=== PATIENT | female | born 1950 | race Caucasian/White ===

== ENCOUNTER 2016-11-06 12:37 | Emergency (ER) | payer MEDICARE, OTHER ==
[2016-11-06 16:02] LABS: HEMOGLOBIN 11.9 gm/dl (12.3-15.3); RED BLOOD COUNT 3.74 M/UL (4.00-5.10); WHITE BLOOD COUNT 8.3 K/UL (4.5-11.0)
[2016-11-06 16:23] LABS: BUN/CREATININE RATIO 9 (0-10)
== END 2016-11-06 18:00 | disposition home or self-care (01) ==
LOC: ER1 12:37
PROVIDERS: Family Medicine
DX: M54.6 Pain in thoracic spine (principal); J44.9 Chronic obstructive pulmonary disease, unspecified; F17.200 Nicotine dependence, unspecified, uncomplicated; Z79.02 Long term (current) use of antithrombotics/antiplatelets; Z79.899 Other long term (current) drug therapy
CPT/HCPCS: 36415; 71020; 80053; 82550; 82553; 83874; 83880; 84484; 85025; 93005; 99284

== ENCOUNTER 2016-12-16 18:54 | Emergency (ER) | payer MEDICARE, OTHER | END 2016-12-16 20:34 | disposition home or self-care (01) | LOC: ER1 18:54 | DX: S63.501A Unspecified sprain of right wrist, initial encounter (principal); J44.9 Chronic obstructive pulmonary disease, unspecified; I10 Essential (primary) hypertension; I25.10 Atherosclerotic heart disease of native coronary artery without angina pectoris; I25.2 Old myocardial infarction; F17.210 Nicotine dependence, cigarettes, uncomplicated; Z90.710 Acquired absence of both cervix and uterus; W19.XXXA Unspecified fall, initial encounter; Y92.009 Unspecified place in unspecified non-institutional (private) residence as the place of occurrence of the external cause | CPT/HCPCS: 29125; 73130; 96372; 99283; J1885 ==

== ENCOUNTER 2017-01-28 13:34 | Emergency (ER) | payer MEDICARE, OTHER | END 2017-01-28 14:24 | disposition home or self-care (01) | LOC: ER1 13:34 | DX: S52.501A Unspecified fracture of the lower end of right radius, initial encounter for closed fracture (principal); I25.2 Old myocardial infarction; J44.9 Chronic obstructive pulmonary disease, unspecified; I10 Essential (primary) hypertension; F17.200 Nicotine dependence, unspecified, uncomplicated; Z88.1 Allergy status to other antibiotic agents; Z88.8 Allergy status to other drugs, medicaments and biological substances; Z95.5 Presence of coronary angioplasty implant and graft; W19.XXXA Unspecified fall, initial encounter; Z95.810 Presence of automatic (implantable) cardiac defibrillator | CPT/HCPCS: 99283 ==

== ENCOUNTER 2020-09-09 14:09 | Inpatient (IN) | payer OTHER ==
[~2020-09-09] VITALS: Ht 165.1 cm; Wt 68.6 kg
[2020-09-09 15:50] LABS: HEMOGLOBIN 9.6 gm/dl (12.3-15.3); RED BLOOD COUNT 3.32 M/UL (4.00-5.10); WHITE BLOOD COUNT 7.7 K/UL (4.5-11.0)
[2020-09-10] MEDS ORDERED: CLOPIDOGREL75 MG PO (00:33)
[2020-09-10] MEDS ORDERED: CITALOPRAM HBR40 MG PO (00:34)
[2020-09-10] MEDS ORDERED: LEVOTHYROXINE25 MCG PO (00:35)
[2020-09-10] MEDS ORDERED: IMDUR ER TAB 3030 MG PO (00:35)
[2020-09-10] MEDS ORDERED: LISINOPRIL2.5 MG PO (00:36)
[2020-09-10] MEDS ORDERED: INCRUSE ELLI62.5 MCG INH (00:36)
[2020-09-10] MEDS ORDERED: ATORVASTATIN CA40 MG PO (00:37)
[2020-09-10] MEDS ORDERED: FENOFIBRATE200 MG PO (00:37)
[2020-09-10] MEDS ORDERED: METOPROLOL SUCC25 MG PO (00:38)
[2020-09-10] MEDS ORDERED: MONTELUKAST SOD10 MG PO (00:38)
[2020-09-10] MEDS ORDERED: POTASSIUM CHLO10 ME1 PO (00:39)
[2020-09-10] MEDS ORDERED: NITROGLYCERIN0.4 MG SL (00:39)
[2020-09-10] MEDS ORDERED: IPRAT-ALBUT 0.5-3 ML INH (00:41)
[2020-09-10] MEDS ORDERED: LASIX 40 MG TAB40 MG PO (00:42)
[2020-09-10] MEDS ORDERED: DILANTIN100 MG PO (00:44)
[2020-09-10] MEDS ORDERED: DILANTIN 100 M100 MG PO (00:45)
[2020-09-10] MEDS ORDERED: ESOMEPRAZOLE MA40 MG PO (00:46)
[2020-09-10 03:56] LABS: HEMOGLOBIN 9.2 gm/dl (12.3-15.3); RED BLOOD COUNT 3.26 M/UL (4.00-5.10)
[2020-09-10 03:57] LABS: WHITE BLOOD COUNT 10.4 K/UL (4.5-11.0)
[2020-09-10 04:00] LABS: BUN/CREATININE RATIO 19 (0-10)
[2020-09-11 04:29] LABS: HEMOGLOBIN 9.3 gm/dl (12.3-15.3); RED BLOOD COUNT 3.16 M/UL (4.00-5.10); WHITE BLOOD COUNT 7.9 K/UL (4.5-11.0)
[2020-09-11 04:58] LABS: BUN/CREATININE RATIO 24 (0-10)
--- NOTE | 2020-09-12 02:07 | NUR ---
PATIENT WAS IN DISTRESS CRYING "CHARLEE HELP ME". DR. VELASQUEZ WAS NOTIFIED OF THE PATIENT AND THAT THE PATIENT WAS NOT ANSWERING QUESTIONS AND WAS ROCKING BACK AND FORTH IN HER BED. DR. VELASQUEZ WAS NOTIFIED OF THE PATIENT'S ABG RESULTS. DR. VELASQUEZ WAS MADE AWARE THAT THE PATIENT WAS DIAGNOSED WITH LUNG CANCER AND HAD DILAUDED AND PERCOCET AND THAT THE MEDS DID NOT SEEM TO BE HELPING. MD NOTIFIED THAT PATIENT'S HR WAS 130'S AND SBP WAS 190'S AND THAT THE PATIENT WAS GRUNT BREATHING. DR VELASQUEZ ORDERED 1MG ATIVAN IVP AND 30MG OF TORODOL IVP. DR. VELASQUEZ VISITED THE PATIENT IN HER ROOM AT 0230.
[2020-09-12 03:52] LABS: HEMOGLOBIN 8.9 gm/dl (12.3-15.3); RED BLOOD COUNT 3.13 M/UL (4.00-5.10)
[2020-09-12 03:57] LABS: WHITE BLOOD COUNT 10.7 K/UL (4.5-11.0)
[2020-09-12 04:00] LABS: BUN/CREATININE RATIO 29 (0-10)
[2020-09-13 07:17] LABS: HEMOGLOBIN 8.8 gm/dl (12.3-15.3); RED BLOOD COUNT 3.12 M/UL (4.00-5.10)
[2020-09-13 07:29] LABS: WHITE BLOOD COUNT 6.7 K/UL (4.5-11.0)
[2020-09-13 07:41] LABS: BUN/CREATININE RATIO 31 (0-10)
[2020-09-14 09:08] LABS: HEMOGLOBIN 10.4 gm/dl (12.3-15.3); WHITE BLOOD COUNT 7.8 K/UL (4.5-11.0)
[2020-09-14 09:17] LABS: RED BLOOD COUNT 3.59 M/UL (4.00-5.10)
[2020-09-14 09:18] LABS: BUN/CREATININE RATIO 30 (0-10)
[2020-09-15 09:59] LABS: HEMOGLOBIN 10.3 gm/dl (12.3-15.3); RED BLOOD COUNT 3.62 M/UL (4.00-5.10); WHITE BLOOD COUNT 11.1 K/UL (4.5-11.0)
[2020-09-15 10:18] LABS: BUN/CREATININE RATIO 19 (0-10)
--- NOTE | 2020-09-15 16:33 | NUR ---
10AM ORTHO CALLED TO INFORM OF PATIENT CONSULT FOR SPINAL COMPRESSION FRACTURE. CALLED DR QUEEN WHO STATED HE WOULD BE IN TO SEE THE PATIENT
[2020-09-16 08:03] LABS: BUN/CREATININE RATIO 14 (0-10)
[2020-09-17 04:11] LABS: HEMOGLOBIN 9.3 gm/dl (12.3-15.3); RED BLOOD COUNT 3.22 M/UL (4.00-5.10); WHITE BLOOD COUNT 14.1 K/UL (4.5-11.0)
[2020-09-17 04:37] LABS: BUN/CREATININE RATIO 12 (0-10)
[2020-09-17] MEDS ORDERED: DURAGESIC 12 M1 EACH TD (10:48)
[2020-09-17] MEDS ORDERED: PERCOCET 5/325 T1 EA PO (10:48)
[2020-09-17] MEDS ORDERED: AMOX TR-K CLV1 EAC4 PO (10:48)
[2020-09-17] MEDS ORDERED: OXYCONTIN10 MG PO (10:48)
[2020-09-21] MEDS ORDERED: OXYCONTIN10 MG PO ×2 (13:47→13:51)
== END 2020-09-17 18:30 | disposition home health service (06) | DRG 180 ==
LOC: ER1 14:09 → PROG CARE 20:53 → CDU 20:53 → PROG CARE 23:41
PROVIDERS: Internal Medicine; Internal Medicine Pulmonary Disease; Preventive Medicine Occupational Medicine; ADMIT Internal Medicine
PROC: 5A09457 Assistance with Respiratory Ventilation, 24-96 Consecutive Hours, Continuous Positive Airway Pressure (ICD-10-PCS; principal; 2020-09-09)
DX: C34.92 Malignant neoplasm of unspecified part of left bronchus or lung (principal); J96.22 Acute and chronic respiratory failure with hypercapnia; J69.0 Pneumonitis due to inhalation of food and vomit; G92 Toxic encephalopathy; J96.21 Acute and chronic respiratory failure with hypoxia; J44.1 Chronic obstructive pulmonary disease with (acute) exacerbation; M48.54XA Collapsed vertebra, not elsewhere classified, thoracic region, initial encounter for fracture; C79.51 Secondary malignant neoplasm of bone; E87.4 Mixed disorder of acid-base balance; Z20.822 Contact with and (suspected) exposure to COVID-19; R91.8 Other nonspecific abnormal finding of lung field; G62.9 Polyneuropathy, unspecified; I25.10 Atherosclerotic heart disease of native coronary artery without angina pectoris; E78.5 Hyperlipidemia, unspecified; M54.2 Cervicalgia; G40.909 Epilepsy, unspecified, not intractable, without status epilepticus; I95.9 Hypotension, unspecified; I25.5 Ischemic cardiomyopathy; I10 Essential (primary) hypertension; F17.210 Nicotine dependence, cigarettes, uncomplicated; Z99.81 Dependence on supplemental oxygen; Z95.810 Presence of automatic (implantable) cardiac defibrillator; Z95.5 Presence of coronary angioplasty implant and graft; Z90.710 Acquired absence of both cervix and uterus; Z88.8 Allergy status to other drugs, medicaments and biological substances
CPT/HCPCS: 36415; 36600; 71045; 71275; 72130; 80048; 80053; 81001; 82550; 82553; 82803; 83605; 83690; 83735; 83880; 84100; 84484; 85025; 85027; 85610; 85652; 85730; 86140; 87086; 93005; 94640; 94660; 94664; 94760; 96365; 96367; 96375; 96376; 97116-GP-CQ; 97162; 97166; 99285; J0456; J0696; J1170; J1650; J1885; J2060; J2270; J2310; J2405; J2543; J2920; J2930; J3486; J7030; Q2009; Q9967; U0002